=== PATIENT | female | born 1955 | race Asian ===

== ENCOUNTER 2016-05-29 20:03 | Emergency (ER) | payer OTHER ==
[~2016-05-29] VITALS: Ht 152.4 cm; Wt 56.5 kg
[~2016-05-29 20:03] MED LIST: MECL25TA2 PO
[2016-05-29 20:19] VITALS: Ht 152.4 cm; Wt 56.5 kg
[2016-05-29 22:09] LABS: ADD SCAN DIFF NO
[2016-05-29 22:16] LABS: BASOPHILS % 0.3 % (0.0-2.0); EOSINOPHILS # 0.4 10^3/ul (0.0-0.5); EOSINOPHILS % 4.8 % (0.0-7.0); HEMATOCRIT 40.4 % (37.0-47.0); HEMOGLOBIN 13.1 g/dl (12.0-16.0); LYMPHOCYTES # 1.8 10^3/ul (0.8-2.9); LYMPHOCYTES % 24.7 % (15.0-51.0); MEAN CORPUSCULAR HEMOGLOBIN 29.6 pg (29.0-33.0); MEAN CORPUSCULAR HGB CONC 32.4 g/dl (32.0-37.0); MEAN CORPUSCULAR VOLUME 91.2 fl (82.0-101.0); MEAN PLATELET VOLUME 11.2 fl (7.4-10.4); MONOCYTE # 0.3 10^3/ul (0.3-0.9); MONOCYTES % 3.9 % (0.0-11.0); NEUTROPHIL # 4.8 10^3/ul (1.6-7.5); PLATELET COUNT 313 10^3/UL (140-415); RED BLOOD COUNT 4.43 10^6/ul (4.20-5.40); RED CELL DISTRIBUTION WIDTH 12.6 % (11.5-14.5); WHITE BLOOD COUNT 7.2 10^3/ul (4.8-10.8)
[2016-05-29 22:22] LABS: CHLORIDE 103 mmol/L (97-110); INR 0.87; PARTIAL THROMBOPLASTIN TIME 28.1 Sec (25.0-35.0); POTASSIUM 3.7 mmol/L (3.5-5.1); PROTIME 11.8 Sec (12.2-14.2); PT RATIO 0.9; SODIUM 147 mmol/L (135-144)
[2016-05-29 22:25] LABS: ANION GAP 21 (8-16); BLOOD UREA NITROGEN 14 mg/dl (7-20); CALCIUM 9.8 mg/dl (8.4-10.2); CARBON DIOXIDE 27 mmol/L (21-31); CREATININE 0.76 mg/dl (0.44-1.00); GLUCOSE 126 mg/dl (70-220)
--- NOTE | 2016-05-29 22:26 | RADRPT ---
PROCEDURE: CT brain without contrast CLINICAL INDICATION: Possible stroke TECHNIQUE: A CT of the brain was performed utilizing axial sections from the skull base through th e vertex without contrast. Sagittal and coronal images were also reformatted. The exam CTDIvol = 45. 01 mGy and DLP = 720.23 mGy-cm. COMPARISON: CT head 06/03/2015 FINDINGS: No acute intracranial hemorrhage is identified. There is no mass effect or midline shift. No extra -axial fluid collection is seen. The ventricles and sulci are within normal limits for size and con figuration. The density of the brain is within normal limits. Rabago-white differentiation is preser bautista. The osseous structures are unremarkable. The mastoid air cells and visualized paranasal sinuses are clear. RPTAT:HJJR IMPRESSION: Unremarkable noncontrast CT of the brain. Physician Leslie Date Time Electronically viewed and signed by Physician Leslie on 05/29/2016 22:26 /
--- NOTE | 2016-05-29 22:31 | RADRPT ---
PROCEDURE: CT cervical spine without contrast. CLINICAL INDICATION: Injury. Post traumatic neck pain TECHNIQUE: CT of the cervical spine without contrast was performed. Axial images were obtained th rough the cervical spine and reformatted at 1.25 mm slice thickness. Coronal and sagittal images wer e reformatted. Exam CTDIvol = 22.38 mGy and DLP = 625.03 mGy-cm. COMPARISON: None available. FINDINGS: Vertebral bodies: Degenerative spondylosis is greatest anteriorly at C5-6. Superior C7 endplate Libia morl's node is present. There is no evidence of compression fracture. The lordosis is mildly strai ghtened. There is normal mineralization and trabeculation. Mild degenerative narrowing of the pred ental space is seen. The C1 ring is intact. Central canal and cervical spinal cord: No abnormal density within the spinal cord is evident and no intraspinal masses are delineated. C2-3: The disk is within normal limits. Moderate left facet arthropathy is present the right facet joint is normal. The uncovertebral joints and foramina are unremarkable.No posterior element fractu re or paraspinal soft tissue abnormality is present C3-4: The disk is within normal limits. Severe facet arthropathy is seen the left facet joint is u nremarkable. Mild right foraminal stenosis is present the left foramen is patent.No posterior [place] ent fracture or paraspinal soft tissue abnormality is present C4-5: Mild degenerative disk narrowing with a small broad-based posterior disk bulge not contributi ng to significant central canal stenosis. Moderate right and mild left facet arthropathy is present . The uncovertebral joints and foramina are unremarkable. No posterior element fracture or parasp inal soft tissue abnormality is present C5-6: Moderate degenerative disk narrowing is present with an osteophyte and disk complex causing n o more than mild central canal stenosis. Mild bilateral facet arthropathy is noted. Uncovertebral h ypertrophy causes moderate right and mild left foraminal stenosis. No posterior element fracture or paraspinal soft tissue abnormality is present C6-7: Slight widening of the disk space from the chronic-appearing central low C7 the superior end plate Schmorl's node. Vacuum facet phenomenon with moderate to severely degenerated right facet art hropathy is noted the left facet joint is unremarkable. The uncovertebral joints and foramina are un remarkable. No posterior element fracture or paraspinal soft tissue abnormality is present C7-T1: The disk is within normal limits. Moderate bilateral facet arthropathy is present. The uncov ertebral joints and foramina are unremarkable.No posterior element fracture or paraspinal soft tissu e abnormality is present Non spine related findings: No abnormalities of significance are seen. RPTAT:HJJR IMPRESSION: 1. No evidence of cervical spine fracture. 2. Degenerative disk disease greatest at C5-6 with osteophyte and disk complex causing mild central stenosis and uncovertebral hypertrophy contributing to moderate right and mild left foraminal narro wing. 3. Multilevel facet arthropathy most pronounced on the left at C2-3 and the right at C3-4 and C6-7. Physician Leslie Date Time Electronically viewed and signed by Spencer Jett Physician on 05/29/2016 22:31 /
--- NOTE | 2016-05-29 22:54 | RADRPT ---
PROCEDURE: XR Chest. CLINICAL INDICATION: Possible stroke. TECHNIQUE: Portable AP semi erect view of the chest was obtained. COMPARISON: 06/03/2015 FINDINGS: The cardiomediastinal silhouette is within normal limits. The lungs are clear. There is no evidenc e for pleural effusion, pneumothorax or pulmonary vascular congestion. The osseous structures are i ntact with no evidence for acute abnormality. RPTAT:HJJR IMPRESSION: No evidence for acute intrathoracic pathology or interval change from 06/03/2015. Physician Leslie Date Time Electronically viewed and signed by Physician Leslie on 05/29/2016 22:54 /
[2016-05-29 22:55] LABS: TROPONIN-I < 0.012 ng/ml (0.00-0.12)
[2016-05-29] MEDS ORDERED: ASPI-664 PO (23:27)
--- NOTE | 2016-05-29 23:33 | ERD ---
ER Documentation Chief Complaint Date/Time DATE: 05/29/16 TIME: 23:27 Chief Complaint left sided numbness, neck pain x 2 hours HPI 60-year-old female with no significant past medical history presenting with tingling in her left arm and left face. She also has associated left posterior neck pain which she has had before in the past. She was at work today around 6: 30 PM when her symptoms started. She denies any associated headache, dizziness , vision disturbance, focal weakness, chest pain, palpitations, fevers or chills. She has had no recent trauma to her neck. She also states that she has this feeling inside of her of feeling "cold" which she has felt before. Symptoms have been constant and not progressing. ROS All systems reviewed and are negative except as per history of present illness. Medications Home Meds Active Scripts Aspirin* (Aspirin* EC) 81 Mg Tablet.dr, 81 MG PO DAILY, #30 TAB Prov:JOSHUA MORRISON MD 05/29/16 Meclizine Hcl* (Antivert*) 25 Mg Tablet, 25 MG PO Q6H Y for dizziness, #20 TAB Prov:UMER STERLING MD 06/03/15 Allergies Allergies: Coded Allergies: No Known Allergy (Unverified , 06/03/15) PMhx/Soc Medical and Surgical Hx: pt denies Medical Hx, pt denies Surgical Hx History of Surgery: No Anesthesia Reaction: No Hx Neurological Disorder: No Hx Respiratory Disorders: No Hx Cardiac Disorders: No Hx Psychiatric Problems: No Hx Miscellaneous Medical Probl: No Hx Alcohol Use: No Hx Substance Use: No Hx Tobacco Use: No Smoking Status: Never smoker FmHx Family History: other (No strokes), No coronary disease, No diabetes Physical Exam Vitals Vital Signs Date Time Temp Pulse Resp B/P Pulse Ox O2 Delivery O2 Flow Rate FiO2 05/29/16 23:00 94 18 164/99 100 Room Air 05/29/16 21:18 Nasal Cannula 3 05/29/16 20:36 86 18 144/88 98 Room Air 05/29/16 20:19 98.0 100 17 164/85 97 Physical Exam Const: Well-appearing, no apparent distress, nontoxic Head: Atraumatic Eyes: Normal Conjunctiva. PERRLA, EOMI ENT: Normal External Ears, Nose and Mouth. Neck: Full range of motion.. No bruits. No meningismus. Left paraspinal muscle tenderness to palpation Resp: Clear to auscultation bilaterally Cardio: Regular rate and rhythm, no murmurs Abd: Soft, non tender, non distended. Normal bowel sounds Skin: No petechiae or rashes Back: No midline or flank tenderness Ext: No cyanosis, or edema. Full range of motion in all extremities. 2+ DP and PT pulses equal bilaterally. 2+ radial pulses, equal bilaterally. Neuro: M/S: Alert and oriented Face: EOMI, face and pharynx with normal sensation and function Motor: Normal strength throughout Sensation: Normal sensation throughout Speech: Normal Cerebel: Normal coordination Normal gait Normal finger to nose DTR: 2+ and symmetric upper/lower extremities Psych: Normal Mood and Affect Result Diagram: 05/29/16211405/29/162114 Results 24 hrs Laboratory Tests Test 05/29/16 21:15 05/29/16 21:22 White Blood Count 7.210^3/ul Red Blood Count 4.4310^6/ul Hemoglobin 13.1g/dl Hematocrit 40.4% Mean Corpuscular Volume 91.2fl Mean Corpuscular Hemoglobin 29.6pg Mean Corpuscular Hemoglobin Concent 32.4g/dl Red Cell Distribution Width 12.6% Platelet Count 09229^3/UL Mean Platelet Volume 11.2fl Neutrophils % 66.0% Lymphocytes % 24.7% Monocytes % 3.9% Eosinophils % 4.8% Basophils % 0.3% Nucleated Red Blood Cells % 0.0/100WBC Neutrophils # 4.810^3/ul Lymphocytes # 1.810^3/ul Monocytes # 0.310^3/ul Eosinophils # 0.410^3/ul Basophils # 0.010^3/ul Nucleated Red Blood Cells # 0.010^3/ul Prothrombin Time 11.8Sec Prothrombin Time Ratio 0.9 INR International Normalized Ratio 0.87 Activated Partial Thromboplast Time 28.1Sec Sodium Level 147mmol/L Potassium Level 3.7mmol/L Chloride Level 103mmol/L Carbon Dioxide Level 27mmol/L Anion Gap 21 Blood Urea Nitrogen 14mg/dl Creatinine 0.76mg/dl Glucose Level 126mg/dl Calcium Level 9.8mg/dl Troponin I < 0.012ng/ml Bedside Glucose 107mg/dL Procedures/[facility] EKG #1: Rate/Rhythm: Normal sinus rhythm QRS, ST, T-waves: No changes consistent w/ acute ischemia Impression: No evidence of ischemia or arrhythmia EKG #2: Rate/Rhythm: Normal Sinus Rhythm QRS, ST, T-waves: No changes consistent w/ acute ischemia Impression: No evidence of ischemia or arrhythmia Chest x-ray shows no acute abnormalities CT head shows no acute abnormalities CT C-spine: 1. No evidence of cervical spine fracture. 2. Degenerative disk disease greatest at C5-6 with osteophyte and disk complex causing mild central stenosis and uncovertebral hypertrophy contributing to moderate right and mild left foraminal narrowing. 3. Multilevel facet arthropathy most pronounced on the left at C2-3 and the right at C3-4 and C6-7. Labs show no significant abnormalities Patient is presenting with left arm tingling and the left paraspinal cervical pain. Her neurologic exam is completely normal. Her vitals are stable. I would low suspicion for aortic dissection, carotid dissection, vertebral artery dissection, acute stroke, acute intracranial hemorrhage, or acute coronary syndrome. Her initial troponin was negative and her EKGs were normal. There is no significant electrolyte abnormality. I do not think the patient needs admission at this time and is appropriate for further outpatient workup if her symptoms continue. Given her C-spine CT results, this may be cervical radiculopathy. Patient is requesting a prescription for aspirin just in case. I told her I have a low suspicion for stroke but I will give her a prescription for aspirin if she would like. I recommended follow-up with her primary care doctor in the next 2 days if her symptoms persist. Return precautions were discussed. Shared decision making was done and patient feels comfortable going home at this time. Copies of her CT results were given to her. Departure Diagnosis: Primary Impression: Paresthesia of left upper extremity Additional Impression: Cervical muscle pain Condition: Stable Patient Instructions: Neck Pain, No Trauma, Radiculopathy, Cervical, Paraesthesias Additional Instructions: Make an appointment with your primary care doctor in the next 2 days. Return to the ER for any worsening symptoms. JOSHUA MORRISON MD May 29, 2016 23:33
[2016-05-30 00:01] VITALS: BP 119/81; PULSE 85; RESP 14
== END 2016-05-30 | disposition home or self-care (01) ==
LOC: E/R 20:03
DX: R20.2 Paresthesia of skin (principal); R40.2252 Coma scale, best verbal response, oriented, at arrival to emergency department; M54.2 Cervicalgia; R40.2142 Coma scale, eyes open, spontaneous, at arrival to emergency department; R40.2362 Coma scale, best motor response, obeys commands, at arrival to emergency department; Z79.82 Long term (current) use of aspirin
CPT/HCPCS: 36415; 70450; 71010; 72125; 80048; 82962; 84484; 85025; 85610; 85730; 93005